=== PATIENT | female | born 1935 | race Caucasian/White ===

== ENCOUNTER 2025-03-02 15:37 | Emergency (ER) | payer MEDICARE, OTHER ==
[~2025-03-02] VITALS: Wt 78.5 kg
[2025-03-02] MEDS ORDERED: IBUPROFEN 400 MG TAB PO ONE (15:50)
== END 2025-03-02 18:53 | disposition home or self-care (01) ==
LOC: ED 15:37
DX: S82.842A Displaced bimalleolar fracture of left lower leg, initial encounter for closed fracture (principal); W19.XXXA Unspecified fall, initial encounter; Y93.89 Activity, other specified; Y92.89 Other specified places as the place of occurrence of the external cause; Y99.8 Other external cause status

== ENCOUNTER 2025-03-14 14:45 | Emergency (ER) | payer MEDICARE, OTHER ==
[~2025-03-14] VITALS: Ht 170.1 cm; Wt 77.1 kg
[2025-03-14] MEDS ORDERED: Acetaminophen/Oxycodone 5 MG/325 MG TABLET PO ONE ×2 (15:20→19:50)
[2025-03-14] MEDS ORDERED: Acetaminophen/Oxycodone 5 MG/325 MG TABLET PO SCH (15:55)
[2025-03-14] MEDS ORDERED: fentaNYL CITRATE/PF 50 MCG/ML SYRINGE IM ONE (18:30)
[2025-03-14] MEDS ORDERED: PERCOCET 5-3251 EACH PO (19:49)
== END 2025-03-14 20:30 | disposition home or self-care (01) ==
LOC: ED 14:45
DX: S42.302A Unspecified fracture of shaft of humerus, left arm, initial encounter for closed fracture (principal); I10 Essential (primary) hypertension; E03.9 Hypothyroidism, unspecified; W19.XXXA Unspecified fall, initial encounter; Y93.89 Activity, other specified; Y92.89 Other specified places as the place of occurrence of the external cause; Y99.8 Other external cause status